=== PATIENT | male | born 1990 | race African-American/Black ===

== ENCOUNTER 2018-02-07 11:05 | Emergency (ER) | payer SELFPAY ==
[~2018-02-07] VITALS: Ht 165.1 cm; Wt 82.0 kg
[2018-02-07 11:16] VITALS: BP 109/74
[2018-02-07] MEDS ORDERED: TETANUS, DIPHTHERIA, PERTUSSIS VAC/PF 0.5ML (>7YR OLD) IM ONE (13:45)
[2018-02-07] MEDS ORDERED: LIDOCAINE HCL/PF 1% 10 MG/ML 5ML VIAL IJ ONE (13:45)
[2018-02-07] MEDS ORDERED: BACITRACIN ZINC OINT UDPKT TOP ONE (13:45)
== END 2018-02-07 15:01 | disposition home or self-care (01) ==
LOC: ER 11:05
DX: S61.212A Laceration without foreign body of right middle finger without damage to nail, initial encounter (principal); S61.214A Laceration without foreign body of right ring finger without damage to nail, initial encounter; F12.10 Cannabis abuse, uncomplicated; W26.8XXA Contact with other sharp object(s), not elsewhere classified, initial encounter; Y93.89 Activity, other specified; Y92.89 Other specified places as the place of occurrence of the external cause; Y99.8 Other external cause status
CPT/HCPCS: 12002; 90471; 90715; 99283; J3490